=== PATIENT | male | born 1940 ===

== ENCOUNTER → 2016-12-28 | Outpatient (CLI) | payer MEDICARE ==
--- NOTE | 2016-12-28 18:03 | PE ---
EXAMINATION TYPE: PET CT fusion skull to thigh DATE OF EXAM: 12/28/2016 CLINICAL HISTORY: Lung mass initial staging study. TECHNIQUE: Following the intravenous administration of 15.72 mCi of F-18 FDG, whole body images are performed from the skull base to the midthigh. Images are reviewed on the computer in the coronal, axial, and sagittal planes. Reconstructed rotating images are created on independent workstation and reviewed on the computer. A non-contrast CT is performed in conjunction with the PET scan. COMPARISON: None. FINDINGS: SKULL BASE AND NECK: No suspicious hypermetabolic uptake is seen in the neck suggest neck adenopathy . CHEST, MEDIASTINUM, AND HILAR REGION: There is background mild emphysematous change. There is spicula renee 1.2 x 1.2 cm nodule left mid lung the superior aspect left lower lobe on axial image 102 with max SUV of 4.64. There is elongated masslike consolidation in the right lower lobe near base measuring 3.0 x 1.5 cm on axial image 126, there is increased hypermetabolic uptake along the right lateral aspect which is sl ightly more solid or nodular component on image 128, max SUV is 8.88. More accurate measurement on ax ial image 128 is 1.6 x 1.9 cm. Suspect malignancy with adjacent medial atelectasis or infiltrate. There is a subpleural 1.5 x 0.9 cm nodule on axial image 137 with max SUV of 2.62, nonspecific range. There is calcified 9 mm nodule lateral left upper lobe on axial image 91. ABDOMEN AND PELVIS: No suspicious hypermetabolic uptake is seen in the abdomen or pelvis to suggest m etastatic malignancy. No concerning adrenal masses are seen. Slight low dense nodularity left adrenal gland favors benign hyperplasia without abnormal hypermetabolic uptake. There is however single 1.9 cm focus of increased uptake in the right prostate periphery mid to apica l level on axial image 236 with max SUV of 12.4. Prominent diffuse calcifications throughout slightly enlarged prostate gland are identified. OSSEOUS STRUCTURES: No suspicious hypermetabolic uptake is seen in the osseous structures. OTHER CT: Moderate right greater than left calcified plaque is seen at bilateral carotid bulb level. There is three-vessel coronary artery calcification. There is small pericardial effusion anteriorly n ear axial image 132. Heart size is upper limits of normal. There is fairly moderate atherosclerotic change of the abdominal aorta with slight ectasia but no gre ater than 3 cm aneurysmal change. There is prominent sigmoid colonic diverticulosis without CT evidence for acute diverticulitis. There are few scattered pelvic phleboliths. Osseous structures are demineralized. There is facet arthropathy in lower lumbar levels. There is mul tilevel spurring in the spine. Slight scoliosis in the thoracic spine is noted. IMPRESSION: Abnormal hypermetabolic uptake in bilateral lower lung nodules and peripheral zone right prostatic nodule, metastatic malignancy related to prostate carcinoma is favored. Urology follow-up f or prostate ultrasound correlation with biopsy is advised. A multilobar primary lung malignancy is fe lt less likely but not excluded.
== END | disposition home or self-care (01) ==
LOC: RADPETMAIN 13:28
PROVIDERS: ATTEND Family Medicine
DX: R91.8 Other nonspecific abnormal finding of lung field (principal); R94.2 Abnormal results of pulmonary function studies
CPT/HCPCS: 78815; A9552